=== PATIENT | male | born 1985 | race Hispanic/Latino ===

== ENCOUNTER 2020-12-10 19:12 | Inpatient (IN) | payer OTHER ==
[~2020-12-10 19:12] MED LIST: Iopamidol-370 76% 500 ML 1 ML ONE
[2020-12-10] MEDS ORDERED: Dexamethasone 4 MG TAB ONE (21:13)
[2020-12-10] MEDS ORDERED: Acetaminophen 500 MG TAB ONE (21:13)
[2020-12-10 21:56] LABS: Hemoglobin 17.3 g/dL (14.0-18.0); Mean Corpuscular HGB CONC 32.4 g/dL (32.0-36.0); Mean Corpuscular Hemoglobin 30.2 pg (27.0-31.0); Mean Corpuscular Volume 93.2 fL (78.0-98.0); Mean Platelet Volume 10.4 fL (7.4-10.4); Platelet Count 201 thou/uL (130-400); Red Blood Cell (RBC) Count 5.74 mill/uL (4.70-6.10); White Blood Cell (WBC) Count 8.3 thou/uL (4.8-10.8)
[2020-12-10 22:17] LABS: ALT (SGPT) 57 U/L (8-55); AST (SGOT) 55 U/L (5-34); Albumin 4.1 g/dL (3.5-5.0); Alkaline Phosphatase 60 U/L (40-110); Anion Gap 16 mmol/L (10-20); BUN (Urea Nitrogen) 17 mg/dL (8.9-20.6); Calc. Creatinine Clearance 0 mL/min (70-130); Calcium 9.8 mg/dL (7.8-10.44); Carbon Dioxide 30 mmol/L (22-29); Chloride 95 mmol/L (98-107); Globulin 4.5 g/dL (2.4-3.5); Glucose 159 mg/dL (70-105); Potassium 3.7 mmol/L (3.5-5.1); Protein, Total 8.6 g/dL (6.0-8.3); Sodium 137 mmol/L (136-145)
[2020-12-10 22:18] LABS: Band 7 % (5-11); Lymphocytes 17 % (21-51); MDiff Complete? YES; Monocytes 10 % (0-10); Neutrophil 64 % (42-75); Platelet Morphology Comment Appears Adequate; RBC Morphology Normal; Reactive Lymphocytes 2 % (0-10)
[2020-12-11 00:48] LABS: Lactic Acid 1.2 mmol/L (0.5-2.2)
[2020-12-11] MEDS ORDERED: Acetaminophen 325 MG TAB PO PRN (01:00)
[2020-12-11] MEDS ORDERED: Sodium Chloride 0.9% 1,000 ML IV SCH (01:00)
[2020-12-11] MEDS ORDERED: Ondansetron ODT 4 MG TAB SL PRN (01:00)
[2020-12-11] MEDS ORDERED: Ondansetron PF 4 MG/2 ML Vial IVP PRN ×2 (01:00→01:43)
[2020-12-11 01:12] VITALS: BMI 38.2
[2020-12-11] MEDS ORDERED: FLU VACC QS2021-22(6MOS UP)/PF 60 MCG/0.5 ML SYRINGE IM ONE (01:30)
[2020-12-11 03:03] LABS: SARS-CoV-2 NAA Rapid Test DETECTED (NotDetected)
[2020-12-11] MEDS ORDERED: Pharmacy to Dose REMDESIVIR IVPB PRN (03:11)
[2020-12-11 05:57] LABS: Anion Gap 15 mmol/L (10-20); BUN (Urea Nitrogen) 18 mg/dL (8.9-20.6); Calc. Creatinine Clearance 157 mL/min (70-130); Calcium 8.9 mg/dL (7.8-10.44); Carbon Dioxide 29 mmol/L (22-29); Chloride 98 mmol/L (98-107); Glucose 264 mg/dL (70-105); Potassium 4.6 mmol/L (3.5-5.1); Sodium 137 mmol/L (136-145)
[2020-12-11 05:58] LABS: Band 15 % (5-11); Hemoglobin 15.2 g/dL (14.0-18.0); Lymphocytes 5 % (21-51); MDiff Complete? YES; Mean Corpuscular Hemoglobin 29.9 pg (27.0-31.0); Mean Corpuscular Volume 93.3 fL (78.0-98.0); Mean Platelet Volume 10.2 fL (7.4-10.4); Monocytes 4 % (0-10); Neutrophil 76 % (42-75); Platelet Count 202 thou/uL (130-400); Platelet Morphology Comment Appears Adequate; RBC Distribution Width 11.8 % (11.5-14.5); RBC Morphology Normal; Red Blood Cell (RBC) Count 5.09 mill/uL (4.70-6.10); White Blood Cell (WBC) Count 7.1 thou/uL (4.8-10.8)
[2020-12-11 06:00] LABS: ALT (SGPT) 46 U/L (8-55); AST (SGOT) 40 U/L (5-34); Albumin 3.4 g/dL (3.5-5.0); Alkaline Phosphatase 51 U/L (40-110); Bilirubin, Direct 0.5 mg/dL (0.1-0.3); Bilirubin, Total 0.9 mg/dL (0.2-1.2); CRP (Inflammatory) 8.33 mg/dL (= or < 0.5); Protein, Total 7.2 g/dL (6.0-8.3)
[2020-12-11] MEDS: Zinc Sulfate 220 MG CAP PO SCH (08:51)
[2020-12-11] MEDS: Cholecalciferol 1,000 UNITS (25 MCG) TAB PO SCH (08:51)
[2020-12-11] MEDS: Enoxaparin Sodium 40 MG/0.4 ML SYRINGE SC SCH ×2 (08:51→19:55)
[2020-12-11] MEDS: Thiamine 100 MG TAB PO SCH (08:51)
[2020-12-11] MEDS: Folic Acid 1 MG TAB PO SCH (08:51)
[2020-12-11] MEDS: Ascorbic Acid 500 mg Chewable Tablet PO SCH (08:51)
[2020-12-11] MEDS: Famotidine 20 MG TAB PO SCH ×2 (08:51→19:55)
[2020-12-11] MEDS: Dexamethasone 10 MG/ML VIAL SLOW IVP SCH ×2 (08:52→19:55)
[2020-12-11] MEDS ORDERED: REMDESIVIR 200 MG in Sodium Chloride 0.9% 250 ML 210 ML IV SCH (09:00)
[2020-12-12 05:37] LABS: Anion Gap 11 mmol/L (10-20); BUN (Urea Nitrogen) 18 mg/dL (8.9-20.6); Calc. Creatinine Clearance 168 mL/min (70-130); Carbon Dioxide 30 mmol/L (22-29); Chloride 102 mmol/L (98-107); Glucose 223 mg/dL (70-105); Potassium 4.4 mmol/L (3.5-5.1); Sodium 139 mmol/L (136-145)
[2020-12-12 05:38] LABS: ALT (SGPT) 44 U/L (8-55); AST (SGOT) 29 U/L (5-34); Albumin 3.3 g/dL (3.5-5.0); Alkaline Phosphatase 47 U/L (40-110); Bilirubin, Direct 0.4 mg/dL (0.1-0.3); Bilirubin, Total 0.7 mg/dL (0.2-1.2); CRP (Inflammatory) 4.52 mg/dL (= or < 0.5); Protein, Total 6.9 g/dL (6.0-8.3)
[2020-12-12 05:53] LABS: Band 2 % (5-11); Hemoglobin 14.9 g/dL (14.0-18.0); Lymphocytes 11 % (21-51); MDiff Complete? YES; Mean Corpuscular HGB CONC 32.2 g/dL (32.0-36.0); Mean Corpuscular Hemoglobin 30.8 pg (27.0-31.0); Mean Corpuscular Volume 95.5 fL (78.0-98.0); Metamyelocyte 1 % (0-0); Monocytes 12 % (0-10); Neutrophil 71 % (42-75); Platelet Count 252 thou/uL (130-400); Platelet Morphology Comment Appears Adequate; RBC Distribution Width 11.8 % (11.5-14.5); RBC Morphology Normal; Reactive Lymphocytes 3 % (0-10); Red Blood Cell (RBC) Count 4.84 mill/uL (4.70-6.10)
[2020-12-12] MEDS: Thiamine 100 MG TAB PO SCH (08:11)
[2020-12-12] MEDS: Folic Acid 1 MG TAB PO SCH (08:11)
[2020-12-12] MEDS: Dexamethasone 10 MG/ML VIAL SLOW IVP SCH ×2 (08:11→20:05)
[2020-12-12] MEDS: Ascorbic Acid 500 mg Chewable Tablet PO SCH (08:11)
[2020-12-12] MEDS: Famotidine 20 MG TAB PO SCH ×2 (08:11→20:04)
[2020-12-12] MEDS: Cholecalciferol 1,000 UNITS (25 MCG) TAB PO SCH (08:11)
[2020-12-12] MEDS: Enoxaparin Sodium 40 MG/0.4 ML SYRINGE SC SCH ×2 (08:11→20:04)
[2020-12-12] MEDS: Zinc Sulfate 220 MG CAP PO SCH (08:11)
[2020-12-12] MEDS: REMDESIVIR 100 MG in Sodium Chloride 0.9% 250 ML 230 ML IV SCH (09:02)
[2020-12-13 05:45] LABS: Band 6 % (5-11); Hemoglobin 15.1 g/dL (14.0-18.0); Lymphocytes 18 % (21-51); MDiff Complete? YES; Mean Corpuscular HGB CONC 32.8 g/dL (32.0-36.0); Mean Corpuscular Hemoglobin 31.1 pg (27.0-31.0); Mean Corpuscular Volume 94.7 fL (78.0-98.0); Mean Platelet Volume 10.4 fL (7.4-10.4); Monocytes 1 % (0-10); Neutrophil 74 % (42-75); Platelet Count 211 thou/uL (130-400); Platelet Morphology Comment Appears Adequate; RBC Distribution Width 11.7 % (11.5-14.5); RBC Morphology Normal; Reactive Lymphocytes 1 % (0-10); Red Blood Cell (RBC) Count 4.86 mill/uL (4.70-6.10); White Blood Cell (WBC) Count 8.6 thou/uL (4.8-10.8)
[2020-12-13 05:48] LABS: Anion Gap 15 mmol/L (10-20); BUN (Urea Nitrogen) 18 mg/dL (8.9-20.6); Calc. Creatinine Clearance 201 mL/min (70-130); Calcium 8.7 mg/dL (7.8-10.44); Carbon Dioxide 25 mmol/L (22-29); Chloride 104 mmol/L (98-107); Glucose 236 mg/dL (70-105); Potassium 4.9 mmol/L (3.5-5.1); Sodium 139 mmol/L (136-145)
[2020-12-13] MEDS: Dexamethasone 10 MG/ML VIAL SLOW IVP SCH ×2 (08:27→19:13)
[2020-12-13] MEDS: Enoxaparin Sodium 40 MG/0.4 ML SYRINGE SC SCH ×2 (08:28→19:13)
[2020-12-13] MEDS: Folic Acid 1 MG TAB PO SCH (08:28)
[2020-12-13] MEDS: Thiamine 100 MG TAB PO SCH (08:28)
[2020-12-13] MEDS: Zinc Sulfate 220 MG CAP PO SCH (08:28)
[2020-12-13] MEDS: Famotidine 20 MG TAB PO SCH ×2 (08:28→19:13)
[2020-12-13] MEDS: REMDESIVIR 100 MG in Sodium Chloride 0.9% 250 ML 230 ML IV SCH (08:29)
[2020-12-13] MEDS: Cholecalciferol 1,000 UNITS (25 MCG) TAB PO SCH (08:29)
[2020-12-13] MEDS: Ascorbic Acid 500 mg Chewable Tablet PO SCH (08:38)
[2020-12-14] MEDS: REMDESIVIR 100 MG in Sodium Chloride 0.9% 250 ML 230 ML IV SCH (08:45)
[2020-12-14] MEDS: Cholecalciferol 1,000 UNITS (25 MCG) TAB PO SCH (08:46)
[2020-12-14] MEDS: Thiamine 100 MG TAB PO SCH (08:46)
[2020-12-14] MEDS: Folic Acid 1 MG TAB PO SCH (08:46)
[2020-12-14] MEDS: Ascorbic Acid 500 mg Chewable Tablet PO SCH (08:46)
[2020-12-14] MEDS: Dexamethasone 10 MG/ML VIAL SLOW IVP SCH (08:46)
[2020-12-14] MEDS: Famotidine 20 MG TAB PO SCH (08:46)
[2020-12-14] MEDS: Enoxaparin Sodium 40 MG/0.4 ML SYRINGE SC SCH (08:46)
[2020-12-14] MEDS: Zinc Sulfate 220 MG CAP PO SCH (08:46)
[2020-12-14 11:56] VITALS: BP 116/84; TEMP 97.7
== END 2020-12-14 13:10 | disposition home or self-care (01) | DRG 177 ==
LOC: ERS 19:12 → 2SW 23:20
PROVIDERS: ADMIT Internal Medicine; ATTEND Family Medicine
PROC: 8E0ZXY6 Isolation (ICD-10-PCS; principal; 2020-12-10)
PROC: 3E0333Z Introduction of Anti-inflammatory into Peripheral Vein, Percutaneous Approach (ICD-10-PCS; 2020-12-10)
PROC: XW033E5 Introduction of Remdesivir Anti-infective into Peripheral Vein, Percutaneous Approach, New Technology Group 5 (ICD-10-PCS; 2020-12-11)
DX: U07.1 COVID-19 (principal); J12.82 Pneumonia due to coronavirus disease 2019; J96.01 Acute respiratory failure with hypoxia; E66.9 Obesity, unspecified; Z68.38 Body mass index [BMI] 38.0-38.9, adult; Z87.891 Personal history of nicotine dependence; N28.9 Disorder of kidney and ureter, unspecified; R73.9 Hyperglycemia, unspecified; T38.0X5A Adverse effect of glucocorticoids and synthetic analogues, initial encounter
CPT/HCPCS: 36415; 71045; 71275; 80048; 80053; 80076; 82728; 83605; 85025; 85379; 86140; 87040; 87086; 93005; J1100; J1650; J7050; J8540; Q9967; U0002

== ENCOUNTER 2021-01-11 09:02 | Outpatient (CLI) | payer OTHER ==
[2021-01-11] MEDS ORDERED: Iopamidol-370 76% 500 ML 1 ML ONE (11:59)
== END 2021-01-11 09:03 | disposition home or self-care (01) ==
LOC: BICCT 09:02
PROVIDERS: ATTEND Internal Medicine
DX: N28.89 Other specified disorders of kidney and ureter (principal); N28.1 Cyst of kidney, acquired; K76.0 Fatty (change of) liver, not elsewhere classified
CPT/HCPCS: 74170; Q9967